=== PATIENT | female | born 1950 | race Caucasian/White ===

== ENCOUNTER 2020-09-01 08:30 | Day surgery (SDC) | payer OTHER ==
[2020-09-01 08:34] LABS: Urine Appearance CLEAR (Clear); Urine Bilirubin NEGATIVE (Negataive); Urine Blood NEGATIVE (Negative); Urine Color YELLOW (Yellow); Urine Glucose NEGATIVE (Negative); Urine Protein NEGATIVE (Negative); Urine Urobilinogen 0.2 mg/dL (0.2-1.0)
[2020-09-01 08:35] LABS: Absolute Lymphocytes (CBC) 1.9 K/uL (0.7-4.9); Basophils % 2.8 % (0-1.3); Hematocrit 38.9 % (36.0-45.0); Lymphocytes % 26.1 % (15.3-44.8); MPV 9.7 fL (7.6-11.3); RBC Red Blood Cell Count 4.25 M/uL (3.86-4.86)
[2020-09-01 08:40] LABS: Urine Microscopic Reflex NO UMIC
--- NOTE | 2020-09-01 08:51 | RAD REPORT ---
EXAM DESCRIPTION: Era Garcia (2 Views)09/01/2020 8:30 am CLINICAL HISTORY: Preop for facial reconstruction surgery COMPARISON: None FINDINGS: The lungs appear clear of acute infiltrate. The heart is normal size IMPRESSION: No acute abnormalities displayed
[2020-09-01] MEDS ORDERED: SCOPOLAMINE HYDROBROMIDE PATCH TD ONE (09:06)
[2020-09-01] MEDS ORDERED: Ringers Lactate 1,000 ML IV ONE ×3 (09:07→15:31)
[2020-09-01] MEDS ORDERED: CEFAZOLIN/SWI 1gm 1 GM/10 ML SYR ONE (09:07)
[2020-09-01] MEDS ORDERED: EPINEPHRINE/PF 1 MG/ML AMP ONE ×2 (10:10→10:23)
[2020-09-01] MEDS ORDERED: NS 0.9% VIAL 10 ML ONE ×2 (10:10→11:48)
[2020-09-01] MEDS ORDERED: LIDOCAINE 1% W/EPI 1:100,000 MDV 20 ML VIAL ONE (10:11)
[2020-09-01] MEDS ORDERED: NA CHLORIDE 0.9% 1,000 ML ONE (10:11)
[2020-09-01] MEDS ORDERED: MIDAZOLAM HCL 2 MG/2 ML INJ ONE ×2 (10:39→10:56)
--- NOTE | 2020-09-01 10:47 | EKG ---
Test Date: 2020-09-01 Test Time: 07:09:33 Video Game Maker: [email or web address] MEASUREMENT RESULTS: Intervals: Rate: 56 ID: [id number] QRSD: 82 QT: 408 QTc: 393 [place]: P: 48 ID: [id number] QRS: 64 T: 60 INTERPRETIVE STATEMENTS: Sinus bradycardia Otherwise normal ECG No previous ECG available for comparison Electronically Signed On 09-01-20 10:46:32 CDT by Herson Garza
[2020-09-01] MEDS ORDERED: ROCURONIUM 50 MG/5 ML VIAL IV ONE ×2 (10:56→13:18)
[2020-09-01] MEDS ORDERED: LIDOCAINE 1% MPF 5 ML VIAL ONE (10:56)
[2020-09-01] MEDS ORDERED: FENTANYL CITR 100 MCG/2 ML ONE ×2 (10:56→13:38)
[2020-09-01] MEDS ORDERED: propofoL 200 MG/20 ML VIAL IV ONE (10:56)
[2020-09-01] MEDS ORDERED: LIDOCAINE JELLY 2%- 5 ML TUBE ONE (11:01)
[2020-09-01] MEDS ORDERED: LANO/MINERAL OIL/PETRO 3.5 GM ONE (11:22)
[2020-09-01] MEDS ORDERED: LIDOCAINE 1% W/EPI 1:100,000 10 ML VIAL ONE ×2 (11:23→13:26)
[2020-09-01] MEDS ORDERED: BSS OPTHALMIC SOL 15 ML BOT OPTH ONE (11:27)
[2020-09-01] MEDS ORDERED: KETOROLAC 30 MG/ML INJ ONE (11:27)
[2020-09-01] MEDS ORDERED: dexAMETHasone 10 MG/ML VIAL ONE (11:27)
[2020-09-01] MEDS ORDERED: EPHEDRINE SULF 50 MG/ML VIAL ONE ×2 (11:48→13:18)
[2020-09-01] MEDS ORDERED: ONDANSETRON 4 MG/2 ML VIAL ONE ×2 (11:48→15:05)
[2020-09-01] MEDS ORDERED: GLYCOPYRROLATE 0.2 MG/ML SYR ONE (14:35)
[2020-09-01] MEDS ORDERED: NEOSTIGMINE 1 MG/ML -5 ML ONE (14:39)
[2020-09-01] MEDS ORDERED: LIDOCAINE 2% MPF 5 ML VIAL ONE (14:51)
[2020-09-01] MEDS ORDERED: PROMETHAZINE INJ 25 MG/ML AMP ONE (15:34)
[2020-09-01 15:36] VITALS: O2SAT 100
[2020-09-01 15:50] VITALS: BP 120/52; TEMP 97.2
[2020-09-01] MEDS ORDERED: CODEINE 30MG/APAP 300MG TAB PO ONE (15:52)
[2020-09-01] MEDS ORDERED: CODEINE 30MG/APAP 300MG TAB ONE (16:09)
--- NOTE | 2020-09-05 08:58 | OP ---
Surgeon: Sen Johnson MD Preoperative Diagnosis: Facial rhytids and brow rhytids. Postoperative Diagnosis: Facial rhytids and brow rhytids. Procedure Performed: Invasive brow lift, fat transfer. Anesthesia: General. Procedure In Detail: After satisfactory induction of general anesthesia, the face and abdomen were injected with 0.5% epinephrine over the pretracheal incision and then preauricular and postauricular. After this was done, then the face was prepped with Betadine scrub and paint, dry sterile drapes were applied in usual manner. A 10 blade was used to make incision from left preauricular over the frontal hairline to the opposite side. Flap was elevated off periosteum. Dissection was carried down to the orbital rim. Tenotomy scissors were used to elevate the soft tissue off the orbital rim. Then, the excess skin was cut off and closed using running locking 3-0 PDS suture. Then right side also was done up to the area where the incision was within the hair Then the right side was incised first. A scalpel was used to dissect down and flaps were elevated in the subcu plane level to the lateral [place]hal region to the nasolabial fold region and into the midline of the neck. This was done on both sides. Electrocautery was used for hemostasis. Then the fat in the neck was removed superficial to the platsma. Then, the 10 VINAYAK drains were brought out and sewn in place with 2-0 silk and the wound was closed with 4-0 PDS running locking suture from preauricular preserving the previous wound closure and then some postauricular. Quan were used to reinforce the area of hair-bearing region. Left side was done in identical manner. The abdomen had already been prepped with DuraPrep, dry sterile drapes were applied at the beginning of the case, and then the donor was exposed. A 100 cc of saline with epinephrine was infiltrated and then a basket cannula was used to aspirate. Amount removed was approximately 60 cc. Then, the patient underwent injection. _. The nasolabial fold 1 cc. The lateral lower eyelid 0.7 cc on both sides and then lateral orbit 0.7 cc on both sides. Then, the forehead had injected with approximately 15 cc were injected in incision over the medial and lateral eyebrow. Dressed with Xeroform, Kerlix, and Nas wrap. The patient tolerated procedure well and returned to recovery room. DANTE/CHANG Voice ID: [id number] Report ID: [id number]
== END 2020-09-01 16:22 | disposition home health service (06) ==
LOC: PRE 08:30 → OR 16:22
PROVIDERS: ATTEND Specialist
PROC: 0J013ZZ Alteration of Face Subcutaneous Tissue and Fascia, Percutaneous Approach (ICD-10-PCS; 2020-09-01)
PROC: 0J083ZZ Alteration of Abdomen Subcutaneous Tissue and Fascia, Percutaneous Approach (ICD-10-PCS; 2020-09-01)
PROC: 0W020ZZ Alteration of Face, Open Approach (ICD-10-PCS; principal; 2020-09-01 10:00)
PROC: [UNRECOGNIZED PROCEDURE] (2020-09-01 10:00)
PROC: 080Q0ZZ Alteration of Right Lower Eyelid, Open Approach (ICD-10-PCS; 2020-09-01 10:00)
DX: L98.8 Other specified disorders of the skin and subcutaneous tissue (principal); L98.7 Excessive and redundant skin and subcutaneous tissue
CPT/HCPCS: 67900; 15773 ×2; 15828; 15824; 15877; 93005; 85025; 36415; 81003; 71046; J2704; J0171 ×2; J2550; J2250; J3010 ×2; J1100; J2710; J0690; J7120 ×3; J7030; J2405 ×2